=== PATIENT | male | born 1945 | race Caucasian/White ===

== ENCOUNTER 2019-09-11 16:17 | Inpatient (IN) | payer MEDICARE, SELFPAY ==
[~2019-09-11] VITALS: Ht 188 cm; Wt 82.6 kg
--- NOTE | 2019-09-11 16:17 | NUR ---
pt biba to bed 9, transferrred via [facility].
--- NOTE | 2019-09-11 16:19 | NUR ---
PT PLACED ON 3 LEAD ECG AND PULSE OX.
--- NOTE | 2019-09-11 16:20 | NUR ---
73 Y/M BIBA FROM HOME C/O LLQ ABD PAIN X 2 DAY. ABD TENDER TO TOUCH. PT PRESENTED WITH FLORES WITH DARK RED BLOOD, THAT WAS PLACED TODAY AT 1400 BY HOME HEALTH NURSE. PT REPORTS 6/10 CONSTANT PAIN. PT ALSO REPORTS FEVER OF 100, DENIES N/V/D. PT REPORTS BURNING AND PAINFUL URINATION SINCE YESTERDAY. PT REPORTS HE WAS SEEN AT [place] X12 DAYS AGO AND DX C UTI AND TOOK ATB FOR APPROX 5-6 DAYS. PT TACHYPNIC, HYPOXIC AT 88% RA. PT PLACED ON 5 L 02 VIA NC. LABORED AND EVEN RR. UPON ASSESSMENT PT WAS NOT TRACKING WITH HIS EYES.PERRL INTACT. SEVERE L SIDED WEAKNESS NOTED. PER JONATHAN. ORDER CODE BRAIN CALLED AND PT RUSHED TO CT. PMH-HTN, ABD CA, THYROID ALLERGIES- PENICILLIN, SULFA
[2019-09-11 16:28] VITALS: BP 124/105
[2019-09-11] MEDS ORDERED: ACETAMINOPHEN 325 MG TAB PO ONE (16:35)
--- NOTE | 2019-09-11 16:40 | NUR ---
dr. butts at bedside.
--- NOTE | 2019-09-11 16:45 | NUR ---
PER DR. MAO CODE BRAIN INITIATED. PT TAKEN TO CT VIA JARVIS WITH STANFORD HER RN.
[2019-09-11] MEDS ORDERED: NACL 0.9% 1,000 ML IV ONE ×2 (16:55→17:35)
[2019-09-11 17:09] LABS: HEMATOCRIT 28.5 % (36-52); HEMOGLOBIN 9.2 g/dL (12.0-18.0); MEAN CORPUSCULAR HEMOGLOBIN 30 pg (27-31); MEAN CORPUSCULAR HGB CONC 32 g/dL (33-37); MEAN CORPUSCULAR VOLUME 92.4 fL (80-94); PLATELET COUNT (AUTO) 280 K/uL (140-450); RED BLOOD CELL COUNT(AUTO) 3.09 MIL/uL (4.20-6.10); RED CELL DISTRIBUTION WIDTH 19.8 % (11.6-13.7); WHITE BLOOD COUNT (AUTO) 11.1 K/uL (4.8-10.8)
[2019-09-11 17:23] LABS: PROTHROMBIN TIME 11.2 secs (10.8-13.4)
[2019-09-11 17:28] LABS: ALBUMIN 2.5 g/dL (3.4-5.0); ASPARTATE AMINOTRANSFERASE 299 U/L (15-37); CARBON DIOXIDE 19.3 mmol/L (21-32); CHLORIDE 105 mmol/L (98-107); CREATININE 1.2 mg/dL (0.6-1.3); GLUCOSE 145 mg/dL (74-106); POTASSIUM 4.3 mmol/L (3.5-5.1); SODIUM SERUM 143 mmol/L (136-145); TOTAL BILIRUBIN 0.5 mg/dL (0.0-1.0); UREA NITROGEN, BLOOD 33 mg/dL (7-18)
[2019-09-11] MEDS ORDERED: LEVOFLOXACIN 500 MG/D5W PREMIX 100 ML IV ONE (17:35)
[2019-09-11] MEDS ORDERED: VANCOMYCIN 1,000 MG in DEXTROSE 5% 250 ML IV ONE (17:35)
[2019-09-11] MEDS ORDERED: VANCOMYCIN 1,000 MG VIAL ONE (17:41)
[2019-09-11 17:50] LABS: LYMPHOCYTES % (MANUAL) 3 % (20-46); MONOCYTES % (MANUAL) 1 % (5-12)
--- NOTE | 2019-09-11 18:00 | NUR ---
PTS FLORES REPLACED PER DR. MONTEMAYOR ORDER. USING STERILE PROCEDURE INSERTED 16 F COUDE CATH INSERTED. GROSS HEMATURIA NOTED, URINE COLLECTED AND SENT TO LAB. PT TOLERATED WELL.
[2019-09-11 18:17] LABS: BILIRUBIN,URINE 3+ (NEGATIVE); BLOOD, URINE 3+ (NEGATIVE); LEUKOCYTE ESTERASE ,URINE 3+ (NEGATIVE); NITRITE, URINE POSITIVE (NEGATIVE); PH,URINE 7.5 (5.0-9.0); UGLUCOSE TRACE (NEGATIVE)
[2019-09-11] MEDS ORDERED: DEXT 5% /NACL 0.9% 1,000 ML IV SCH (18:47)
[2019-09-11] MEDS ORDERED: HYDROcodone/APAP 7.5/325 MG 1 TAB PO PRN (18:50)
[2019-09-11] MEDS ORDERED: ACETAMINOPHEN 325 MG TAB PO PRN (18:50)
[2019-09-11] MEDS ORDERED: ONDANSETRON 4 MG/2 ML VIAL IVP PRN (18:50)
--- NOTE | 2019-09-11 19:13 | NUR ---
TRANSFER OF CARE GIVEN TO RAY REYES.
--- NOTE | 2019-09-11 19:14 | NUR ---
RECEIVED REPORT FROM RAY NICHOLAS FOR CONTINUITY OF CARE.
[2019-09-11 19:29] LABS: MAGNESIUM 1.7 mg/dL (1.8-2.4); PHOSPHORUS 3.9 mg/dL (2.5-4.9); THYROID STIMULATING HORMONE 4.39 uIU/mL (0.34-3.74)
--- NOTE | 2019-09-11 19:32 | NUR ---
PT RESTING IN BED, HOB ELEVATED, ATTACHED TO MONITOR. BED IN LOWEST POSITION, SIDE RAIL UP X2. WILL CONTINUE TO MONITOR.
[2019-09-11 19:37] LABS: APPEARANCE,URINE CLOUDY (CLEAR); COLOR,URINE AMBER (YELLOW)
[2019-09-11 19:43] LABS: RBC,URINE TOO NUMEROUS TO COUN /HPF (0-5)
[2019-09-11 20:00] VITALS: BP 107/66
--- NOTE | 2019-09-11 20:00 | NUR ---
RECEIVED PT FROM ER, FOR COMPLAINT OF LLQ ABD PAIN AND BLOODY URINE, DX OF SEPTIC SHOCK AND UTI, WITH A HX OF HTN HYPOTHYROIDISM, PT GIVEN TYLENOL, VANCO, LEVAQUIN, AND NACL IN ER, PT HAS ALLERGY TO PENICILLIN AND SULFA. PT CAME IN ON 5L NASAL CANNULA LAC 18 G AND RIGHT HAND 2O G, PT A&O X4 LUNG SOUNDS CLEAR BILATERAL, S1 AND S2 HEART SOUNDS HEARD, PULSES PALPABLE UPPER AND LOWER EXTREMITIES, BOWEL SOUNDS HEARD ALL 4 QUADRANTS, PT HAS FLORES CATHETER IN PLACE LEAKING BLOOD, AND DRAINING DARK RED COLOR, PT HAD 1 BM ON ADMITTANCE, SOFT BROWN COLOR NO ABNORMAL ODOR NOTED, PT HAS WEAKNESS TO LOWER EXTREMITIES AND IMPAIRED PERCEPTION OF STATING HE FEELS DOUBLE WILL CONTINUE TO MONITOR
[2019-09-11] MEDS ORDERED: OMEP20EC11 PO (20:14)
[2019-09-11] MEDS ORDERED: TRAM50TA1 PO (20:14)
[2019-09-11] MEDS ORDERED: AMLO5TAB PO (20:14)
[2019-09-11] MEDS ORDERED: LOV40I SUBQ (20:14)
[2019-09-11] MEDS ORDERED: ALLO300T28 PO (20:14)
[2019-09-11] MEDS ORDERED: LEVO0.029 PO (20:14)
[2019-09-11] MEDS ORDERED: [UNRECOGNIZED DRUG - CODE] IJ (20:14)
[2019-09-11] MEDS: NACL 0.9% 1,000 ML IV SCH (20:15)
[2019-09-11] MEDS: DOCUSATE SODIUM 100 MG GELCAP PO SCH (21:00)
[2019-09-11 22:00] VITALS: BP 107/66
[2019-09-12] VITALS (10 sets, daily range): BP systolic 107–124; BP diastolic 60–80
--- NOTE | 2019-09-12 | NUR ---
PT RELAXING IN BED COMPLAINS OF BEING COLD, BLANKETS GIVEN, WILL CONTINUE TO MONITOR PT
--- NOTE | 2019-09-12 03:00 | NUR ---
PT RESTING IN BED, PT DENIES PAIN AT THIS TIME, PT STATES THAT HE IS HAVING DIFFICULTY SLEEPING AT THIS TIME BECAUSE HE IS COLD, GOT PT ANOTHER BLANKET AND WILL CONTINUE TO MONITOR PT
[2019-09-12 05:58] LABS: HEMATOCRIT 22.9 % (36-52); HEMOGLOBIN 7.6 g/dL (12.0-18.0); MEAN CORPUSCULAR HEMOGLOBIN 30 pg (27-31); MEAN CORPUSCULAR HGB CONC 33 g/dL (33-37); MEAN CORPUSCULAR VOLUME 89.3 fL (80-94); PLATELET COUNT (AUTO) 180 K/uL (140-450); RED BLOOD CELL COUNT(AUTO) 2.56 MIL/uL (4.20-6.10); WHITE BLOOD COUNT (AUTO) 19.5 K/uL (4.8-10.8)
[2019-09-12] MEDS ORDERED: LACTULOSE 20 GM/30 ML UDC PO ONE (06:00)
[2019-09-12 06:14] LABS: CARBON DIOXIDE 21.3 mmol/L (21-32); CHLORIDE 108 mmol/L (98-107); CREATININE 1.1 mg/dL (0.6-1.3); GLUCOSE 127 mg/dL (74-106); POTASSIUM 3.3 mmol/L (3.5-5.1); SODIUM SERUM 140 mmol/L (136-145); UREA NITROGEN, BLOOD 38 mg/dL (7-18)
[2019-09-12 06:20] LABS: CHOL/HDL RATIO 2.7 (1-4.5); MAGNESIUM 1.4 mg/dL (1.8-2.4); PHOSPHORUS 3.7 mg/dL (2.5-4.9)
[2019-09-12 06:33] LABS: LYMPHOCYTES % (MANUAL) 3 % (20-46)
--- NOTE | 2019-09-12 07:32 | NUR ---
BEDSIDE REPORT RECEIVED FROM HARDWARE DEVELOPER NURSE, PT SITTING IN BED WITH EYES CLOSED, RESP EVEN UNLABORED ON 1L NC. EVEN CHEST RISE AND FALL NOTED, SKIN DRY COLOR SLIGHTLY PALE, STABLE ON BALLOON PILOT, VITALS STABLE ON MONITOR HR 104, RR22, BP 116/66, O2SAT 98%, LAC 18G SITE WNL, FLORES CATH IN PLACE, DRAINING DARK YELLOW URINE, CALL LAM WITHIN REACH SIDE RAILS UP, BED LOCKED IN LOW POSITION, POC REVIEWED, WILL CONTINUE TO MONITOR.
--- NOTE | 2019-09-12 07:47 | NUR ---
DR DEAN AND MEDICAL TEAM AT BEDSIDE FOR ROUNDS
[2019-09-12] MEDS ORDERED: SODIUM PHOSPHATE 118 ML ENEM RC ONE (08:00)
[2019-09-12] MEDS: amLODIPine 5 MG TAB PO SCH (08:31)
--- NOTE | 2019-09-12 08:34 | NUR ---
DISCHARGE PLANNING: THIS IS A 73 Y/O MALE PATIENT FROM HOME, WHO CAME IN DUE TO HEMATURIA. PAST MEDICAL HISTORY INCLUDE LARGE B CELL LYMPHOMA METS TO SPINE, HTN, BPH, HYPOTHYROID, CHRONIC PAIN AND PARAPLEGIA. INITIAL DIAGNOSIS OF SEPTIC SHOCK AND UTI. CURRENT LABS INCLUDE WBC 19.5, H/H 7.6/22.9, NA/K 140/3.3, BUN/CREA 38/1.1. D DIMER 4200. COVID 19 PENDING. URINE AND BLOOD CULTURES PENDING. ON LEVAQUIN. PULMO, ID AND URO CONSULTS IN PLACE. CT OF ABD/PELVIS SHOWED FECAL IMPACTION, LEFT RENAL CYSTS, POSSIBLE STASIS STONES IN URINARY BLADDER. CT HEAD SHOWED MILD CHRONIC MICROVASCULAR ISCHEMIC CHANGE. CXR SHOWED MILD INTERSTITIAL EDEMA AT THE LEFT LOWER LUNG. DC PLAN PENDING ON THE PATIENT'S RESPONSE TO TREATMENT. CONTACTED [facility] AT [phone], ABLE TO SPEAK TO MILIND, SHE STATED THERE IS NO ASSIGNED CM AT THIS TIME AND TO CALL BACK AROUND [phone]. WILL FOLLOW UP. Addendum: 09/12/19 at 1155 by Mercedez Quintana CM CONTACTED [facility], ABLE TO SPEAK TO PRASANNA RAMESH. SHE STATED [facility] CASTELLAN[facility] IS ASSIGNED TO THIS PATIENT WELL. SHE STATED SOME CALLED THEM ALREADY TO INFORM THEM OF THIS ADMISSION. SHE STATED TO JUST FAX THE CLINICALS AND CM EMANUEL WILL REVIEW. PER KARIE SONG, CLINICALS HAVE BEEN FAXED. Addendum: 09/13/19 at 0907 by Mercedez Quintana RECEIVED AN ORDER FOR TRANSFER TO CONTRACTED FACILITY. CONTACTED [facility] AT [phone], ABLE TO SPEAK TO MILIND TIWARI. I INFORMED HER THAT PATIENT IS STABLE FOR TRANSFER AND UPDATED CLINICALS AND ORDER SENT TO [phone]. SHE STATED SHE WILL INFORM LUCINA CASTELLANOS. Addendum: 09/13/19 at 1032 by Mercedez Quintana CONTACTED [facility], ABLE TO SPEAK TO LUCINA CASTELLANOS. UPDATED HER OF THE PATIENT'S CONDITION. I INFORMED HER THAT COVID TESTING IS STILL PENDING. SHE STATED EVEN IF IT COMES BACK POSITIVE, THEY CAN STILL TAKE THE PATIENT PATIENT HOWEVER THEY CANNOT TAKE THE PATIENT WHEN THE RESULTS ARE STILL PENDING. Addendum: 09/13/19 at 1034 by Mercedez Quintana CM DR. JOSÉ LUIS LOPEZ AWARE. Addendum: 09/13/19 at 1149 by Mercedez Quintana CM CONTACTED LAB TO FOLLOW UP WITH THE [facility] RESULTS, ANESTHESIA RESIDENT STATED IT SHOULD BE COMING BACK TODAY. WILL FOLLOW UP. Addendum: 09/13/19 at 1557 by Mercedez Quintana CM RECEIVED A CALL FROM LUCINA CASTELLANOS OF [facility], TO FOLLOW UP ON THE COVID RESULTS. I INFORMED HER THAT IS STILL PENDING. SHE STATED SHE CALL BACK AGAIN TOMORROW TO FOLLOW. SHE ALSO STATED SHE WILL AUTHORIZE THE STAY FOR TODAY AND FAX OVER AUTHA[employer]ida SONG COORDINATOR MADE AWARE. DR. ORDONEZ MADE AWARE WELL. Addendum: 09/14/19 at 1057 by Queta Ward CM DC PLANNING: COVID TEST NEGATIVE. CALLED [facility] [phone] SPOKE WITH MITALI VERDUGO NOTIFIED HER THAT PT IS STABLE FOR TRANSFER , COVID TEST NEGATIVE, PROVIDE ATTENDING'S MD CELL PHONE AND UNIT NUMBER. PER MITALI SHE WILL WORK ON THE TRANSFER AND WILL CALL BACK. LUCINA TO FOLLOW Addendum: 09/14/19 at 1701 by Mercedez Quintana CM CONTACTED [facility], ABLE TO SPEAK TO ALDEN MANAGER ANALYTICAL. HE STATED NO BEDS YET HOWEVER THERE IS AN ACCEPTING DOC ALREADY, DR. CARRANZA. PRIMARY RN, CHARGE NURSE AND DR. SOSA MADE AWARE.
[2019-09-12] MEDS: LEVOTHYROXINE 0.025 MG TAB PO SCH (08:44)
[2019-09-12] MEDS: DOCUSATE SODIUM 100 MG GELCAP PO SCH ×2 (08:44→20:10)
[2019-09-12] MEDS: ZINC SULF 220 MG CAP PO SCH (08:44)
[2019-09-12] MEDS: FAMOTIDINE 20 MG TAB PO SCH (08:44)
[2019-09-12] MEDS: ASCORBIC ACID 500 MG TAB PO SCH (08:45)
[2019-09-12] MEDS: FILGRASTIM-TBO 300 MCG/0.5 ML SYRINGE SUBQ SCH (08:45)
[2019-09-12] MEDS ORDERED: LACTULOSE 20 GM/30 ML UDC ONE (08:47)
--- NOTE | 2019-09-12 08:50 | NUR ---
PATIENT HAS BEEN SCREENED AND CATEGORIZED HIGH NUTRITION RISK. PATIENT WILL BE SEEN WITHIN 1-2 DAYS OF ADMISSION. 09/12/19-09/13/[address]
[2019-09-12] MEDS ORDERED: ENOXAPARIN 40 MG/0.4 ML SYR SUBQ SCH (09:00)
--- NOTE | 2019-09-12 09:02 | NUR ---
PT SPEAKS CLEARLY, ORIENTED TO SELF AND LOCATION AND SITUATION, SOMEWHAT CONFUSED INITIALLY, PT WAS UNABLE TO FIND SOME WORDS, USED WRONG WORDS TO EXPRESS NEEDS, BUT AFTER 10-15MIN, RESOLVED, PT STATES "I THINK I'M ABLE TO TALK FINE NOW", DR SOSA MADE AWARE.
[2019-09-12] MEDS ORDERED: POTASSIUM CHLORIDE 10 MEQ TABER PO SCH (09:10)
--- NOTE | 2019-09-12 09:20 | NUR ---
DR MOREIRA UROLOGY AT BEDSIDE, FLORES CATH IRRIGATED. NO BLOOD VISIBLE AT THIS TIME.
[2019-09-12] MEDS ORDERED: VANCOMYCIN PER PHARMACY MC PRN (09:40)
--- NOTE | 2019-09-12 09:45 | NUR ---
AM MEDS GIVEN, PT SWALLOWS PILLS ONE BY ONE WITHOUT PROBLEM, FLEETS ENEMA GIVEN PER ORDER.
[2019-09-12] MEDS ORDERED: MAG SULF 2000 MG/WATER PREMIX 100 ML IV SCH (10:00)
[2019-09-12] MEDS ORDERED: VANCOMYCIN HCL 1.25 GM in DEXTROSE 5% 250 ML IV SCH (11:00)
--- NOTE | 2019-09-12 11:20 | NUR ---
LARGE BM X2, SOFT BROWN, PERICARE DONE, FLORES CARE DONE.
[2019-09-12] MEDS: NACL 0.9% 1,000 ML IV SCH ×2 (11:33→16:15)
--- NOTE | 2019-09-12 13:45 | NUR ---
PT REQUESTS LUNCH, REGULAR DIET PER PEDRO APONTE GIVEN AT THIS TIME, PT REPOSITIONED, NECK ROLL ADJUSTED PER PT
--- NOTE | 2019-09-12 14:28 | NUR ---
09/12/19 RD INITIAL ASSESSMENT COMPLETED PLEASE REFER TO NUTRITION ASSESSMENT UNDER CARE ACTIVITY FOR ESTIMATED NUTRITIONAL NEEDS. 1. CONTINUE REGULAR DIET TOLERATED 2. RECOMMEND ENSURE TID 3. ENCOURAGE PO INTAKE >75% 4. RD TO FOLLOW-UP 2-3 DAYS, HIGH RISK PIPER MAJOR, RD
[2019-09-12] MEDS: traMADol 50 MG TAB PO PRN ×2 (16:31→23:13)
--- NOTE | 2019-09-12 16:45 | NUR ---
TRAMADOL GIVEN FOR GENERALIZED PAIN
--- NOTE | 2019-09-12 16:50 | NUR ---
PT SITTING UP RESTING WELL, PT RE POSITIONED,
[2019-09-12] MEDS ORDERED: LEVOFLOXACIN 750 MG/D5W PREMIX 150 ML IV SCH (18:00)
--- NOTE | 2019-09-12 18:20 | NUR ---
PT ASSISTED WITH DINNER, CARI 50% OF TRAY, NO PROBLEM WITH SWALLOWING
--- NOTE | 2019-09-12 19:15 | NUR ---
RECEIVED PT FROM DAY SHIFT RN PT RESTING IN BED PT HAS LEFT AC 18G IV AND FLORES CATHETER IN PLACE DRAINING LIGHT STEPH URINE WITH SEDIMENTATION, PT PULSES PALPABLE UPPER AND LOWER EXTREMITIES, S1 AND S2 HEART SOUND HEARD, SAFETY PROTOCOLS IN PLACE, PT VITALS STABLE WILL CONTINUE TO MONITOR PT
--- NOTE | 2019-09-12 19:25 | NUR ---
REPORT GIVEN TO LEATHER COATER NURSE, PT STABLE AT THIS TIME, NOW TELE STATUS.
[2019-09-12] MEDS: MEROPENEM 1,000 MG in NACL 0.9% 100 ML IV SCH (20:10)
--- NOTE | 2019-09-12 20:15 | NUR ---
RECEIVED REPORT FROM AM SHIFT. PATIENT SEEN AND ASSESSED. PATIENT IS IN NO APPARENT RESPIRATORY DISTRESS AT THIS TIME. RR 20, HR 100, SPO2 96% ON 2L NASAL CANNULA. WILL CONTINUE TO MONITOR PATIENT.
--- NOTE | 2019-09-12 20:30 | NUR ---
PT MEDS GIVEN PT ON PHONE WITH , PT EXPRESSED DESIRE TO RECEIVE PAIN MEDICATION ON A REGULAR SCHEDULE TO HELP MANAGE PAIN
--- NOTE | 2019-09-12 22:57 | NUR ---
PT ASKED FOR TRAMADOL FOR ROUTINE TO HELP PREVENT/MANAGE PAIN
[2019-09-13] VITALS: BP 130/81
--- NOTE | 2019-09-13 02:11 | NUR ---
PT RESTING IN BED VITALS STABLE WILL CONTINUE TO MONITOR PT
[2019-09-13] MEDS: NACL 0.9% 1,000 ML IV SCH ×3 (02:15→22:15)
[2019-09-13 04:00] VITALS: BP 130/66
[2019-09-13] MEDS: MEROPENEM 1,000 MG in NACL 0.9% 100 ML IV SCH ×3 (05:11→20:31)
[2019-09-13 05:59] LABS: HEMATOCRIT 21.5 % (36-52); HEMOGLOBIN 7.2 g/dL (12.0-18.0); MEAN CORPUSCULAR HEMOGLOBIN 30 pg (27-31); MEAN CORPUSCULAR HGB CONC 33 g/dL (33-37); MEAN CORPUSCULAR VOLUME 89.6 fL (80-94); PLATELET COUNT (AUTO) 124 K/uL (140-450); RED BLOOD CELL COUNT(AUTO) 2.41 MIL/uL (4.20-6.10); WHITE BLOOD COUNT (AUTO) 14.2 K/uL (4.8-10.8)
[2019-09-13 06:26] LABS: ALBUMIN 1.9 g/dL (3.4-5.0); ANION GAP 9.9 (8-16); ASPARTATE AMINOTRANSFERASE 145 U/L (15-37); CARBON DIOXIDE 24.3 mmol/L (21-32); CHLORIDE 110 mmol/L (98-107); CREATININE 0.8 mg/dL (0.6-1.3); GLUCOSE 99 mg/dL (74-106); LACTATE DEHYDROGENASE 169 U/L (85-227); MAGNESIUM 2.2 mg/dL (1.8-2.4); PHOSPHORUS 3.1 mg/dL (2.5-4.9); POTASSIUM 3.2 mmol/L (3.5-5.1); SODIUM SERUM 141 mmol/L (136-145); TOTAL BILIRUBIN 0.5 mg/dL (0.0-1.0); UREA NITROGEN, BLOOD 27 mg/dL (7-18)
--- NOTE | 2019-09-13 06:30 | NUR ---
PT TRANSFERRED TO TELE REPORT GIVEN TO BEDSIDE RN PT STABLE AT TIME OF TRANSFER
[2019-09-13 06:38] LABS: LYMPHOCYTES % (MANUAL) 2 % (20-46)
[2019-09-13 06:39] LABS: MONOCYTES % (MANUAL) 1 % (5-12)
--- NOTE | 2019-09-13 07:20 | NUR ---
PT WAS TRANSFERRED TO THE UNIT FROM ICU. ON ASSESSMENT PT IS AWAKE AND RESPONSIVE. PT IS ON ROOM AIR AND HAS A FLORES CATHETER IN PLACE. WILL CONTINUE TO MONITOR. CALL LIGHT IN REACH.
[2019-09-13 08:00] VITALS: BP 132/79
[2019-09-13] MEDS ORDERED: POTASSIUM CHLORIDE 10 MEQ TABER PO SCH (09:00)
--- NOTE | 2019-09-13 09:00 | NUR ---
WHEN TO CHECK ON PATIENT TO TAKE HIS VITAL SIGNS AND CLEAN UP PATIENT. PER DIETITIAN THERAPEUTIC FLORES CATHETER WAS DISLODGED WHEN THE PATIENT WAS TURNED. WHEN CHECKED FLORES WAS DISLODGED. NOTED WITH SMALL AMOUNT OF BLOOD ON THE TIP OF FLORES, AND TOWEL THAT WAS ON PATIENT. REINSERTED A NEW FLORES 16F. NOTED WITH BLOODY OUTPUT. IRRIGATED THE FLORES AND STILL NOTED WITH BLOOD. NOTIFIED RESIDENT VITAL SIGNS ARE IN NORMAL VALUES.
[2019-09-13] MEDS: FILGRASTIM-TBO 300 MCG/0.5 ML SYRINGE SUBQ SCH (09:09)
[2019-09-13] MEDS: FAMOTIDINE 20 MG TAB PO SCH (09:10)
[2019-09-13] MEDS: amLODIPine 5 MG TAB PO SCH (09:10)
[2019-09-13] MEDS: ASCORBIC ACID 500 MG TAB PO SCH (09:10)
[2019-09-13] MEDS: DOCUSATE SODIUM 100 MG GELCAP PO SCH ×2 (09:10→20:31)
[2019-09-13] MEDS: LEVOTHYROXINE 0.025 MG TAB PO SCH (09:55)
[2019-09-13] MEDS: ZINC SULF 220 MG CAP PO SCH (09:55)
[2019-09-13] MEDS: traMADol 50 MG TAB PO PRN ×2 (11:42→22:47)
[2019-09-13 12:00] VITALS: BP 138/84
--- NOTE | 2019-09-13 13:00 | NUR ---
THE UROLOGIST WAS PRESENT AT PT'S BEDSIDE TO INSERT FLORES. 20F 3 VALUE FLORES WAS INSERTED BY THE UROLOGIST. PER THE UROLOGIST FLUSH NEEDED AND CONTINUE TO MONITOR. PT TOLERATED PROCEDURE WELL.
--- NOTE | 2019-09-13 15:00 | NUR ---
PT IS IN BED. PT HAD A BOWEL MOVEMENT. PT WAS CLEANED. NOTED WITH URINE OUTPUT. NO BLOOD NOTED IN URINE. NO DISTRESS NOTED. NO COMPLAINS OF PAIN. SAFETY MEASURES IN PLACE. WILL CONTINUE TO MONITOR. CALL LIGHT IN PLACE.
[2019-09-13 16:00] VITALS: BP 120/66
--- NOTE | 2019-09-13 18:00 | NUR ---
PT IS IN BED. PT WAS REPOSITIONED. NO BLOOD NOTED IN URINE. NO DISTRESS NOTED. NO COMPLAINS OF PAIN. SAFETY MEASURES IN PLACE. WILL CONTINUE TO MONITOR. CALL LIGHT IN PLACE.
--- NOTE | 2019-09-13 19:25 | NUR ---
SHIFT REPORT GIVEN TO BOARD OF EDUCATION SECRETARY NURSE. PT IS STABLE. CALL LIGHT IN REACH.
--- NOTE | 2019-09-13 19:30 | NUR ---
RECEIVED BEDSIDE REPORT FROM AM SHIFT NURSE. PATIENT IS LYING IN BED AWAKE AND ALERT, WATCHING TV. NO SOB OR DISTRESS NOTED ON 1 LPM VIA NC. RESPIRATIONS EVEN AND UNLABORED. IV ACCESS NOTED ON LEFT AC 20 GAUGE, PATENT, INTACT AND INFUSING WELL. FLORES CATHETER IN PLACE, DRAINING WELL. INITIAL ASSESSMENT DONE. SKIN IS INTACT. BED IN LOW, BED LOCKED. SAFETY MEASURES IN PLACE. CALL LIGHT PLACED WITHIN PATIENT REACH. WILL CONTINUE TO MONITOR PATIENT.
--- NOTE | 2019-09-13 20:00 | NUR ---
FAMILY BROUGHT PATIENT BELONGINGS. CELLPHONE, FLOOR WINDER, SILVER NECKLACE, SLEEPING MASK AND 2 PENS. ADDED TO BELONGINGS CHECKLIST. COSIGNED WITH CHARGE NURSE. INFORMED PATIENT THAT WE ARE NOT RESPONSIBLE FOR PERSONAL ITEMS. PATIENT SAID IT WAS FINE.
[2019-09-13 20:30] VITALS: BP 132/74
--- NOTE | 2019-09-13 22:00 | NUR ---
ROUNDS DONE. PATIENT RESTING WITH EYES CLOSED. NO DISTRESS NOTED. CALL LIGHT WITHIN PATIENT REACH. WILL CONTINUE TO MONITOR PATIENT.
--- NOTE | 2019-09-13 22:47 | NUR ---
PRN TRAMADOL ADMINISTERED PER PATIENT REQUEST FOR MODERATE PAIN. WILL CONTINUE TO MONITOR PATIENT.
--- NOTE | 2019-09-13 23:26 | NUR ---
FLORES CATHETER FLUSHED WITH NORMAL SALINE. FLORES CATHETER IN PLACE IS A 16 PERSIAN DOUBLE LUMEN CATHETER WITH A 10ML BALLOON. LIGHT YELLOW URINE OUTPUT. DR. LOVE MADE AWARE.
[2019-09-14 00:30] VITALS: BP 123/73
--- NOTE | 2019-09-14 00:30 | NUR ---
VITALS DONE. NO SOB OR DISTRESS NOTED. WILL CONTINUE TO MONITOR PATIENT.
--- NOTE | 2019-09-14 00:45 | NUR ---
LAB CALLED WITH A NEGATIVE RESULT FOR COVID-19 TESTING.
--- NOTE | 2019-09-14 03:01 | NUR ---
ROUNDS DONE. PATIENT RESTING WITH EYES CLOSED. VISIBLE CHEST RISE AND FALL NOTED. WILL CONTINUE TO MONITOR PATIENT.
[2019-09-14] MEDS: MEROPENEM 1,000 MG in NACL 0.9% 100 ML IV SCH ×2 (04:27→13:26)
[2019-09-14 04:30] VITALS: BP 131/71
--- NOTE | 2019-09-14 04:30 | NUR ---
VITALS DONE. VISIBLE CHEST RISE AND FALL NOTED. CALL LIGHT WITHIN PATIENT REACH. WILL CONTINUE TO MONITOR PATIENT.
[2019-09-14] MEDS: traMADol 50 MG TAB PO PRN ×3 (05:43→17:59)
--- NOTE | 2019-09-14 05:43 | NUR ---
PRN TRAMADOL ADMINISTERED PER PATIENT REQUEST FOR MODERATE PAIN. WILL CONTINUE TO MONITOR PATIENT.
--- NOTE | 2019-09-14 06:58 | NUR ---
PATIENT IS RESTING COMFORTABLY IN BED. NO SOB OR DISTRESS NOTED. CALL LIGHT WITHIN PATIENT REACH. WILL ENDORSE TO AM SHIFT NURSE FOR CONTINUITY OF CARE.
[2019-09-14 07:16] LABS: HEMOGLOBIN 7.4 g/dL (12.0-18.0)
--- NOTE | 2019-09-14 07:20 | NUR ---
RECEIVED REPORT FROM FEDERAL AGENT NURSE. PT IS CURRENTLY ASLEEP AND LAYING IN BED. NO SIGNS OF DISTRESS NOTED. SKIN IS INTACT WITH IV ASYMPTOMATIC, PATENT AND IV RUNNING PER ORDER. RESPIRATIONS ARE EVEN AND UNLABORED ON 1L NASAL CANNULA. PT DOES NOT COMPLAIN OF PAIN AT THIS TIME. SAFETY MEASURES IN PLACE, AND CALL LIGHT WITHIN REACH, WILL CONTINUE TO MONITOR.
[2019-09-14 07:41] LABS: HEMATOCRIT 21.7 % (36-52); MEAN CORPUSCULAR HEMOGLOBIN 31 pg (27-31); MEAN CORPUSCULAR HGB CONC 34 g/dL (33-37); MEAN CORPUSCULAR VOLUME 89.5 fL (80-94); PLATELET COUNT (AUTO) 99 K/uL (140-450); RED BLOOD CELL COUNT(AUTO) 2.43 MIL/uL (4.20-6.10); RED CELL DISTRIBUTION WIDTH 19.2 % (11.6-13.7); WHITE BLOOD COUNT (AUTO) 4.8 K/uL (4.8-10.8)
[2019-09-14 08:00] VITALS: BP 138/64
[2019-09-14 08:14] LABS: ALBUMIN 1.8 g/dL (3.4-5.0); ANION GAP 8.5 (8-16); ASPARTATE AMINOTRANSFERASE 37 U/L (15-37); CARBON DIOXIDE 26.3 mmol/L (21-32); CHLORIDE 108 mmol/L (98-107); CREATININE 0.7 mg/dL (0.6-1.3); GLUCOSE 90 mg/dL (74-106); LACTATE DEHYDROGENASE 168 U/L (85-227); MAGNESIUM 1.7 mg/dL (1.8-2.4); PHOSPHORUS 2.1 mg/dL (2.5-4.9); POTASSIUM 3.8 mmol/L (3.5-5.1); SODIUM SERUM 139 mmol/L (136-145); TOTAL BILIRUBIN 0.7 mg/dL (0.0-1.0); UREA NITROGEN, BLOOD 18 mg/dL (7-18)
[2019-09-14] MEDS: NACL 0.9% 1,000 ML IV SCH ×2 (08:15→17:59)
[2019-09-14] MEDS ORDERED: MERO1VIA13 IV (08:35)
[2019-09-14] MEDS: amLODIPine 5 MG TAB PO SCH (09:16)
[2019-09-14] MEDS: ASCORBIC ACID 500 MG TAB PO SCH (09:17)
[2019-09-14] MEDS: ZINC SULF 220 MG CAP PO SCH (09:17)
[2019-09-14] MEDS: DOCUSATE SODIUM 100 MG GELCAP PO SCH (09:17)
[2019-09-14] MEDS: FAMOTIDINE 20 MG TAB PO SCH (09:21)
[2019-09-14] MEDS: LEVOTHYROXINE 0.025 MG TAB PO SCH (09:21)
--- NOTE | 2019-09-14 09:22 | NUR ---
ADMINISTERED MEDICATIONS PER ORDER AND TOLERATED WELL. PT TOOK EACH MEDICATION ONE BY ONE. BREAKFAST WAS 100% COMPLETE. PT DOES NOT COMPLAIN OF ANY PAIN AT THIS TIME AND DOES NOT HAVE ANY OTHER REQUESTS. SAFETY MEASURES IN PLACE AND WILL CONTINUE TO MONITOR.
[2019-09-14 10:13] LABS: BASOPHILS % (MANUAL) 0 % (0-2); EOSINOPHILS % (MANUAL) 2 % (0-4); LYMPHOCYTES % (MANUAL) 2 % (20-46); MONOCYTES % (MANUAL) 1 % (5-12)
[2019-09-14 10:14] LABS: MYELOCYTES % 1 % (0-0)
--- NOTE | 2019-09-14 10:20 | NUR ---
PT ELENA CALLED AND WANTED A STATUS UPDATE. INFORMED ABOUT THE PLAN OF CARE AND POSSIBLE TRANSFER TO [facility]. PT IS CURRENTLY BEING CHANGED BY CHEMICAL WORKER AND IS ALERT AND ORIENTATED. NO SIGNS OF DISTRESS NOTED OR COMPLAINTS OF PAIN AT THIS TIME. SAFETY MEASURES IN PLACE AND WILL CONTINUE TO MONITOR.
[2019-09-14 12:00] VITALS: BP 119/72
--- NOTE | 2019-09-14 12:11 | NUR ---
PT IS STATING THAT HE IS IN PAIN OF 6/10 IN ABD AND LEGS. NO OTHER COMPLAINTS AT THIS TIME OR SIGNS OF DISTRESS NOTED. WILL REASSESS PAIN IN ONE HOUR, SAFETY MEASURES IN PLACE AND WILL CONTINUE TO MONITOR.
--- NOTE | 2019-09-14 13:33 | NUR ---
ADMINISTERED MEDICATIONS PER ORDER AND TOLERATED WELL. PTS IV WAS LEAKING AND NEW IV SITE WAS PLACED IN L. HAND 22GUAGE. IV IS ASYMPTOMATIC AND PATENT WITH NO PAIN. SAFETY MEASURES IN PLACE AND WILL CONTINUE TO MONITOR.
--- NOTE | 2019-09-14 15:52 | NUR ---
PT IS CURRENTLY AWAKE, ALERT, AND ON HIS PHONE IN BED. PT STATES THAT HE DOES NOT COMPLAIN OF ANY PAIN AT THIS TIME BUT THE TRAMADOL IS STARTING TO WEAR OFF. PT STATES THAT HE WILL WAIT UNTIL SIX TO TAKE IT. NO OTHER COMPLAINTS AT THIS TIME. SAFETY MEASURES IN PLACE, CALL LIGHT WITHIN REACH AND WILL CONTINUE TO MONITOR.
[2019-09-14] MEDS ORDERED: MAGNESIUM OXIDE 400 MG TAB PO SCH (15:58)
[2019-09-14] MEDS ORDERED: SODIUM PHOS / POTASSIUM PHOS 1 PKT PDR PO SCH (15:59)
[2019-09-14 16:00] VITALS: BP 125/72
--- NOTE | 2019-09-14 16:23 | NUR ---
ADMINISTERED MEDICATIONS PER ORDER AND TOLERATED WELL. PT DOES NOT COMPLAIN OF PAIN AT THIS TIME AND DOES NOT SHOW SIGNS OF DISTRESS. SAFETY MEASURES IN PLACE AND WILL CONTINUE TO MONITOR.
--- NOTE | 2019-09-14 18:01 | NUR ---
ADMINISTERED TRAMADOL FOR PAIN LEVEL OF 6/10. ALSO CHANGED IV FLUIDS TO A NEW BAG. SAFETY MEASURES IN PLACE CALL LIGHT WITHIN REACH AND WILL CONTINUE TO MONITOR.
--- NOTE | 2019-09-14 19:02 | NUR ---
INFORMED PT THAT [facility] CALLED AND THEY HAVE A BED AVAILABLE. PT WILL BE GOING TO ROOM 309. PT DOES NOT COMPLAIN OF PAIN AT THIS TIME. SAFETY MEASURES IN PLACE AND CALL LIGHT WITHIN REACH. WILL ENDORSE TO WATER MANGLE TENDER NURSE FOR CONTINUITY OF CARE.
--- NOTE | 2019-09-14 19:33 | NUR ---
GAVE REPORT TO CHADD AT [facility]. WILL ENDORSE TO COMMERCIAL ANNOUNCER NURSE
--- NOTE | 2019-09-14 19:33 | NUR ---
received pt aaox4 , nid , w/ fc -draining clear u.o . bearable pain as this time . safety measures in place . poc discussed and verbalize understanding. per nod am the pt is to be discharge to [facility]- she already gave the report to [facility] . to be picked up at 2029. will cont. to monitor.
[2019-09-14 19:56] VITALS: BP 122/68
--- NOTE | 2019-09-14 21:00 | NUR ---
discharge / yvette , w/ stable condition. quill picking machine operator by angie - w/ cf , and erika camilo - discharge packet given .
== END 2019-09-14 21:00 | disposition short-term general hospital (02) | DRG 871 ==
LOC: MED 16:17 → EEVIPCON 16:17 → MIC 18:47 → MTU 09-13 07:00
PROVIDERS: ADMIT General Practice; ATTEND General Practice
DX: A41.9 Sepsis, unspecified organism (principal); R65.21 Severe sepsis with septic shock; J69.0 Pneumonitis due to inhalation of food and vomit; E43 Unspecified severe protein-calorie malnutrition; G93.41 Metabolic encephalopathy; N39.0 Urinary tract infection, site not specified; C79.89 Secondary malignant neoplasm of other specified sites; C85.10 Unspecified B-cell lymphoma, unspecified site; G82.20 Paraplegia, unspecified; Z68.23 Body mass index [BMI] 23.0-23.9, adult; Z92.3 Personal history of irradiation; B96.1 Klebsiella pneumoniae [K. pneumoniae] as the cause of diseases classified elsewhere; D63.8 Anemia in other chronic diseases classified elsewhere; D72.810 Lymphocytopenia; E03.9 Hypothyroidism, unspecified; E83.42 Hypomagnesemia; I10 Essential (primary) hypertension; Z88.0 Allergy status to penicillin; Z88.2 Allergy status to sulfonamides; Z20.828 Contact with and (suspected) exposure to other viral communicable diseases; N40.0 Benign prostatic hyperplasia without lower urinary tract symptoms; R74.0 Nonspecific elevation of levels of transaminase and lactic acid dehydrogenase [LDH]; Z92.21 Personal history of antineoplastic chemotherapy; K59.00 Constipation, unspecified
CPT/HCPCS: 36415; 71045; 80048; 80053; 81001; 82550; 83036; 83605; 83615; 83690; 83735; 83880; 84100; 84443; 84484; 85025; 85379; 85610; 85651; 85730; 86140; 86886; 86900; 86901; 87040; 87081; 87086; 87186; 93005; 93880; 96365; 99291; J1447; J1956; J2185; J3370; J3475; J7030; J7060; Q0092; Q9967